=== PATIENT | female | born 1940 | race Caucasian/White ===

== ENCOUNTER 2016-08-03 12:30 | Emergency (ER) | payer MEDICARE, OTHER ==
[~2016-08-03] VITALS: Ht 157.5 cm; Wt 67.1 kg
[2016-08-03] MEDS ORDERED: NITROGLYCERIN SUBLINGUAL 0.4 MG BOTTLE OF 25. SL ONE (13:30)
[2016-08-03] MEDS ORDERED: LIDO:MAALOX 1:1 20 ML SINGLE DOSE PO ONE (13:30)
[2016-08-03] MEDS ORDERED: LIDO15SO2 MM (14:23)
[2016-08-03 14:29] VITALS: BP 138/79
--- NOTE | 2016-08-03 18:55 | ED.ADGEN ---
Past History Past Medical History: Diabetes, Hypertension, Hyperthyroid Past Surgical History: Other Alcohol Use: Occasionally Drug Use: None Adult General HPI HPI Patient is a 76-year-old woman, with history of hypertension, hypothyroidism, type 2 diabetes mellitus, esophageal stricture status post dilatation, who presents to the emergency department with a complaint of a foreign body sensation in her throat was last night. Patient states that she ate a salad, and candy, and believes that one of these items may be "septic my throat". She denies any difficulty with swallowing or breathing, is managing secretions and fluids without issue, she says a persistent foreign body sensation that is uncomfortable in her lower throat. She states she experienced something similar several years ago, at that time she believes that she had an esophageal dilatation performed. 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 She denies eating any fish bones or other specific items that she recalls lodging in her throat. Is unable to pinpoint exactly when the sensation began. Denies any chest pain or shortness of breath, any fevers or chills, any back pain or abdominal pain, any weakness, numbness, tingling, swelling of the tongue or mouth. Review of Systems Review of Systems Constitutional: Denies fever or chills [] Eyes: Denies change in visual acuity, redness, or eye pain [] HENT: Denies nasal congestion or sore throat [] foreign body sensation in the throat. Respiratory: Denies cough or shortness of breath [] Cardiovascular: No additional information not addressed in HPI [] GI: Denies abdominal pain, nausea, vomiting, bloody stools or diarrhea [] : Denies dysuria or hematuria [] Musculoskeletal: Denies back pain or joint pain [] Integument: Denies rash or skin lesions [] Neurologic: Denies headache, focal weakness or sensory changes [] Endocrine: Denies polyuria or polydipsia [] Current Medications Current Medications Current Medications Medications (Trade) Dose Ordered Sig/Davon Start Time Stop Time Status Last Admin Dose Admin Multi-Ingredient Mouthwash/Gargle (Gi Cocktail) 20 ml 1X ONCE 08/03/16 13:30 08/03/16 13:31 DC 08/03/16 13:13 20 ML Nitroglycerin (Nitrostat) 0.4 mg 1X ONCE 08/03/16 13:30 08/03/16 13:31 DC 08/03/16 13:13 0.4 MG Allergies Allergies Allergies Coded Allergies Type Severity Reaction Last Updated Verified No Known Drug Allergies 08/03/16 No Physical Exam Physical Exam Constitutional: Well developed, well nourished, no acute distress, non-toxic appearance. [] HENT: Normocephalic, atraumatic, bilateral external ears normal, oropharynx moist, no oral exudates, nose normal. Oropharynx is clear [] Eyes: PERRLA, EOMI, conjunctiva normal, no discharge. [] Neck: Normal range of motion, no tenderness, supple, no stridor. [] Cardiovascular:Heart rate regular rhythm, no murmur, S1, S2, no rubs or gallops. [] Lungs & Thorax: Bilateral breath sounds clear to auscultation , no wheezing, rhonchi, rales. No chest or crepitus or tenderness. [] Abdomen: Bowel sounds normal, soft, no tenderness, no masses, no pulsatile masses. [] Skin: Warm, dry, no erythema, no rash. [] Back: No tenderness, no CVA tenderness. [] Extremities: No tenderness, no cyanosis, no clubbing, ROM intact, no edema. [] Neurologic: Alert and oriented X 3, normal motor function, normal sensory function, no focal deficits noted. [] Psychologic: Affect normal, judgement normal, mood normal. [] Current Patient Data Vital Signs Vital Signs Date Time Temp Pulse Resp B/P (MAP) Pulse Ox O2 Delivery O2 Flow Rate FiO2 08/03/16 14:29 89 16 138/79 (98) 97 Room Air 08/03/16 12:40 98.3 EKG EKG Not indicated. [] Radiology/Procedures Radiology/Procedures Not indicated. [] Course & Med Decision Making Course & Med Decision Making Pertinent Labs and Imaging studies reviewed. (See chart for details) Patient appears comfortable, is tolerating secretions, and by her report, food and fluid without issue. Examination does not reveal any evidence of abnormalities in the throat or neck. Patient denies ingestion of anything that would be radio opaque, we did hold off on an x-ray in the emergency department. As patient stated, she is has symptoms previously consistent with this, and required esophageal dilatation. Based on her comfortable status, there is no indication for emergent intervention at this time. Patient was given a GI cocktail in the emergency department, and also nitroglycerin, which she states did make her feel better. On reevaluation states she is ready to be discharged home, she will follow-up with her primary care provider Dr. Ulloa tomorrow for additional evaluation, and for referral to ENT for additional workup as needed, and will return to the emergency department if any new, worsening or concerning symptoms develop. Patient discharged home with family in stable condition with plan as above with a prescription for viscous lidocaine to be used as needed. Final Impression Final Impression [] Problems: Dragon Disclaimer Dragon Disclaimer This electronic medical record was generated, in whole or in part, using a voice recognition dictation system. Departure: Impression: Primary Impression: Sensation of foreign body in esophagus Disposition: 01 HOME, SELF-CARE Condition: IMPROVED Scripts Lidocaine HCl (Lidocaine HCl Viscous) 15 Ml Solution 15 ML MM PRN QID Y for PAIN, #120 [facility] Prov: SUMANTH WHITTAKER DO 08/03/16 SUMANTH WHITTAKER DO Aug 03, 2016 18:55
== END 2016-08-03 14:29 | disposition home or self-care (01) ==
LOC: ER 12:30
DX: T18.128A Food in esophagus causing other injury, initial encounter (principal); E11.9 Type 2 diabetes mellitus without complications; I10 Essential (primary) hypertension; W22.8XXA Striking against or struck by other objects, initial encounter; Y93.89 Activity, other specified; Y99.8 Other external cause status; Y92.89 Other specified places as the place of occurrence of the external cause
CPT/HCPCS: 99283

== ENCOUNTER → 2016-10-03 | Outpatient (CLI) | payer MEDICARE, OTHER ==
[~2016-10-03] MED LIST: LIDO15SO2 MM
--- NOTE | 2016-10-03 17:25 | RAD ---
DATE: 10/03/2016 EXAM: MAMMO ANIL SCREENING BILATERAL HISTORY: Routine screening COMPARISON: 10/01/2015 This study was interpreted with the benefit of Computerized Aided Detection (CAD). The breast parenchyma shows scattered fibroglandular densities. Breast parenchyma level B. FINDINGS: 2-D and 3-D tomosynthesis imaging was performed in CC and MLO projections. The fibroglandular tissues are heterogeneous. No new or enlarging breast densities are seen. Benign type calcifications are present. No suspicious microcalcifications have developed. IMPRESSION: Stable mammograms without evidence of malignancy. BI-RADS CATEGORY: 2 BENIGN FINDING(S) RECOMMENDED FOLLOW-UP: 12M 12 MONTH FOLLOW-UP PQRS compliance statement: Patient information was entered into a reminder system with a target due date for the next mammogram. Mammography is a sensitive method for finding small breast cancers, but it does not detect them all and is not a substitute for careful clinical examination. A negative mammogram does not negate a clinically suspicious finding and should not result in delay in biopsying a clinically suspicious abnormality. "Our facility is accredited by the [employer] Mammography Program."
== END | disposition home or self-care (01) ==
LOC: MAMMO 09:41
PROVIDERS: ATTEND Internal Medicine
DX: Z12.31 Encounter for screening mammogram for malignant neoplasm of breast (principal)
CPT/HCPCS: 77063; G0202; 77067

== ENCOUNTER → 2017-02-02 | Outpatient (CLI) | payer MEDICARE, OTHER | END | disposition home or self-care (01) | LOC: LAB 09:04 | PROVIDERS: ATTEND Internal Medicine | DX: E11.9 Type 2 diabetes mellitus without complications (principal) | CPT/HCPCS: 36415; 82947 ==

== ENCOUNTER → 2017-10-28 | Outpatient (CLI) | payer MEDICARE, OTHER ==
--- NOTE | 2017-10-28 12:29 | RAD ---
DATE: 10/28/2017 EXAM: MAMMO ANIL SCREENING BILATERAL HISTORY: Routine screening COMPARISON: 10/03/2016 This study was interpreted with the benefit of Computerized Aided Detection (CAD). The breast parenchyma is heterogeneously dense, which could reduce sensitivity of mammography. Breast parenchyma level C. FINDINGS: 2-D and 3-D tomosynthesis imaging was performed in CC and MLO projections. The fibroglandular tissues are heterogeneously somewhat nodular pattern. No new or enlarging breast density is seen. There are numerous benign type calcifications in both breasts. No suspicious microcalcifications have developed. IMPRESSION: Stable mammograms without evidence of malignancy. BI-RADS CATEGORY: 2 BENIGN FINDING(S) RECOMMENDED FOLLOW-UP: 12M 12 MONTH FOLLOW-UP PQRS compliance statement: Patient information was entered into a reminder system with a target due date for the next mammogram. Mammography is a sensitive method for finding small breast cancers, but it does not detect them all and is not a substitute for careful clinical examination. A negative mammogram does not negate a clinically suspicious finding and should not result in delay in biopsying a clinically suspicious abnormality. "Our facility is accredited by the [employer] Mammography Program."
== END | disposition home or self-care (01) ==
LOC: MAMMO 10:31
PROVIDERS: ATTEND Internal Medicine
DX: Z12.31 Encounter for screening mammogram for malignant neoplasm of breast (principal); E78.2 Mixed hyperlipidemia; I10 Essential (primary) hypertension; E11.9 Type 2 diabetes mellitus without complications; E03.9 Hypothyroidism, unspecified
CPT/HCPCS: 77063; 77067

== ENCOUNTER → 2017-12-18 | Outpatient (CLI) | payer MEDICARE, OTHER ==
[2017-12-18 09:53] LABS: ALBUMIN 3.3 g/dL (3.4-5.0); ALBUMIN/GLOBULIN RATIO 0.8 (1.0-1.7); CALCIUM 8.4 mg/dL (8.5-10.1); GFR 53.9; POTASSIUM 4.4 mmol/L (3.5-5.1); TOTAL BILIRUBIN 0.4 mg/dL (0.2-1.0); TOTAL PROTEIN 7.4 g/dL (6.4-8.2)
[2017-12-18 14:29] LABS: THYROID STIM HORMONE (TSH) 0.203 uIU/mL (0.358-3.740)
[2017-12-18 23:13] LABS: HEMOGLOBIN A1C 6.4 % (4.8-5.6)
== END | disposition home or self-care (01) ==
LOC: LAB 08:30
PROVIDERS: ATTEND Internal Medicine
DX: E03.4 Atrophy of thyroid (acquired) (principal); I10 Essential (primary) hypertension; E78.2 Mixed hyperlipidemia; E11.9 Type 2 diabetes mellitus without complications
CPT/HCPCS: 36415; 80053; 80061; 83036; 84443

== ENCOUNTER → 2018-08-10 | Outpatient (CLI) | payer MEDICARE, OTHER ==
[2018-08-10 10:28] LABS: ALBUMIN 3.1 g/dL (3.4-5.0); ALBUMIN/GLOBULIN RATIO 0.7 (1.0-1.7); CALCIUM 9.2 mg/dL (8.5-10.1); CREATININE 0.8 mg/dL (0.6-1.0); GFR 69.6; POTASSIUM 4.6 mmol/L (3.5-5.1); TOTAL BILIRUBIN 0.5 mg/dL (0.2-1.0); TOTAL PROTEIN 7.5 g/dL (6.4-8.2)
[2018-08-10 22:46] LABS: THYROID STIM HORMONE (TSH) 0.126 uIU/mL (0.358-3.740)
[2018-08-11 13:07] LABS: HEMOGLOBIN A1C 6.5 % (4.8-5.6)
== END | disposition home or self-care (01) ==
LOC: LAB 08:46
PROVIDERS: ATTEND Internal Medicine
DX: E78.2 Mixed hyperlipidemia (principal); E03.4 Atrophy of thyroid (acquired); E11.9 Type 2 diabetes mellitus without complications; I10 Essential (primary) hypertension
CPT/HCPCS: 36415; 80053; 80061; 82043; 83036; 84443

== ENCOUNTER → 2018-09-14 | Outpatient (CLI) | payer MEDICARE, OTHER | END | disposition home or self-care (01) | LOC: LAB 09:12 | PROVIDERS: ATTEND Internal Medicine | DX: R26.89 Other abnormalities of gait and mobility (principal); E03.9 Hypothyroidism, unspecified | CPT/HCPCS: 82607; 84443 ==

== ENCOUNTER → 2018-09-15 | Outpatient (CLI) | payer MEDICARE, OTHER ==
--- NOTE | 2018-09-15 13:56 | RAD ---
PQRS Compliance statement: One or more of the following individualized dose reduction techniques were utilized for this examination: 1. Automated exposure control. 2. Adjustment of the mA and/or kV according to patient size. 3. Use of iterative reconstruction technique. Indication:Balance problems. TECHNIQUE: CT head without IV contrast COMPARISON: None FINDINGS: No pathologic extra-axial or intra-axial fluid collection. Mild atrophy. The ventricles and basal cisterns are within normal limits. No acute intracranial bleed. Mild periventricular low-attenuation of the white matter noted. No focal daniel-white differentiation. No suspicious calvarial lesion. Visualized paranasal sinuses and mastoid air cells are clear. Atherosclerotic plaque in the bilateral cavernous segments of the ICA. IMPRESSION: No acute intracranial process on this noncontrast CT. If concern for acute ischemic stroke is high, please consider MRI brain. Electronically signed by: Aaron Shaw DO (09/15/2018 1:53 PM) [facility]
== END | disposition home or self-care (01) ==
LOC: CT 12:52
PROVIDERS: ATTEND Internal Medicine
DX: I65.23 Occlusion and stenosis of bilateral carotid arteries (principal); G31.9 Degenerative disease of nervous system, unspecified
CPT/HCPCS: 70450

== ENCOUNTER → 2018-10-13 | Outpatient (CLI) | payer MEDICARE, OTHER | END | disposition home or self-care (01) | LOC: LAB 12:41 | PROVIDERS: ATTEND Internal Medicine | DX: E03.4 Atrophy of thyroid (acquired) (principal) | CPT/HCPCS: 84443 ==

== ENCOUNTER 2018-12-15 20:15 | Emergency (ER) | payer MEDICARE, OTHER ==
[2018-12-15 20:19] VITALS: BP 128/69
[2018-12-15] MEDS ORDERED: IV NORMAL SALINE 1,000ML 1,000 ML IV ONE (20:30)
[2018-12-15 21:06] LABS: BASO # 0.1 x10^3/uL (0.0-0.2); BASO % 1 % (0-3); EOS # 0.2 x10^3/uL (0.0-0.7); EOS % 4 % (0-3); HEMOGLOBIN 11.9 g/dL (12.0-15.5); LYMPH # 0.7 x10^3/uL (1.0-4.8); LYMPH % 12 % (24-48); MEAN CORPUSCULAR HEMOGLOBIN 30 pg (25-35); MEAN CORPUSCULAR HGB CONC 33 g/dL (31-37); MEAN CORPUSCULAR VOLUME 92 fL (79-100); MONO # 0.6 x10^3/uL (0.0-1.1); MONO % 10 % (0-9); NEUT # 4.4 x10^3uL (1.8-7.7); NEUT % 73 % (31-73); PLATELET COUNT 297 x10^3/uL (140-400); RED BLOOD COUNT 3.93 x10^6/uL (3.50-5.40); RED CELL DISTRIBUTION WIDTH 14.1 % (11.5-14.5)
[2018-12-15 21:13] LABS: ALBUMIN 2.8 g/dL (3.4-5.0); ALBUMIN/GLOBULIN RATIO 0.8 (1.0-1.7); CALCIUM 7.3 mg/dL (8.5-10.1); CREATININE 1.3 mg/dL (0.6-1.0); GFR 39.7; TOTAL BILIRUBIN 0.4 mg/dL (0.2-1.0); TOTAL PROTEIN 6.4 g/dL (6.4-8.2)
--- NOTE | 2018-12-15 21:13 | PHYS DOC ---
Past History Past Medical History: Diabetes, Hypertension, Hyperthyroid Past Surgical History: Other Alcohol Use: Occasionally Drug Use: None Adult General Chief Complaint Chief Complaint: HEMORRHOIDS HPI HPI 78-year-old female presents with rectal bleeding. The patient has had 4 episodes of stool with bright red blood today. She states that it was "pouring into the toilet". She has never had bleeding like this. It is painless. She is concerned because she recently had stents placed. She is on a life vest and fluid restriction at 1500 mL a day. She was concerned that with this does not stop bleeding. The patient is on aspirin and Plavix. She denies fever or chills. She has no other complaints. Review of Systems Review of Systems Constitutional: Denies fever or chills [] Eyes: Denies change in visual acuity, redness, or eye pain [] HENT: Denies nasal congestion or sore throat [] Respiratory: Denies cough or shortness of breath [] Cardiovascular: No additional information not addressed in HPI [] GI: Denies abdominal pain, nausea, vomiting, bloody stools or diarrhea [] : Rectal bleeding[] Musculoskeletal: Denies back pain or joint pain [] Integument: Denies rash or skin lesions [] Neurologic: Denies headache, focal weakness or sensory changes [] Endocrine: Denies polyuria or polydipsia [] All other systems were reviewed and found to be within normal limits, except as documented in this note. Current Medications Current Medications Current Medications Medications (Trade) Dose Ordered Sig/Davon Start Time Stop Time Status Last Admin Dose Admin Sodium Chloride 1,000 ml @ 1,000 mls/hr 1X ONCE 12/15/18 20:30 12/15/18 21:29 Allergies Allergies Allergies Coded Allergies Type Severity Reaction Last Updated Verified No Known Drug Allergies 08/03/16 No Physical Exam Physical Exam Constitutional: Well developed, well nourished, no acute distress, non-toxic appearance. [] HENT: Normocephalic, atraumatic, bilateral external ears normal, oropharynx moist, no oral exudates, nose normal. [] Eyes: PERRLA, EOMI, conjunctiva normal, no discharge. [] Neck: Normal range of motion, no tenderness, supple, no stridor. [] Cardiovascular:Heart rate regular rhythm, no murmur [] Lungs & Thorax: Bilateral breath sounds clear to auscultation [] Abdomen: Bowel sounds normal, soft, no tenderness, no masses, no pulsatile masses. [] Skin: Warm, dry, no erythema, no rash. [] Back: No tenderness, no CVA tenderness. [] Extremities: No tenderness, no cyanosis, no clubbing, ROM intact, no edema. [] Neurologic: Alert and oriented X 3, normal motor function, normal sensory function, no focal deficits noted. [] Psychologic: Affect normal, judgement normal, mood normal. Rectal: large skin tag, no obvious bleeding, minimal pain with DILCIA, small amount of blood with exam, no flowing bleeding.[] Current Patient Data Lab Results Laboratory Tests Test 12/15/18 20:45 White Blood Count 6.0 x10^3/uL (4.0-11.0) Red Blood Count 3.93 x10^6/uL (3.50-5.40) Hemoglobin 11.9 g/dL (12.0-15.5) L Hematocrit 36.0 % (36.0-47.0) Mean Corpuscular Volume 92 fL (79-100) Mean Corpuscular Hemoglobin 30 pg (25-35) Mean Corpuscular Hemoglobin Concent 33 g/dL (31-37) Red Cell Distribution Width 14.1 % (11.5-14.5) Platelet Count 297 x10^3/uL (140-400) Neutrophils (%) (Auto) 73 % (31-73) Lymphocytes (%) (Auto) 12 % (24-48) L Monocytes (%) (Auto) 10 % (0-9) H Eosinophils (%) (Auto) 4 % (0-3) H Basophils (%) (Auto) 1 % (0-3) Neutrophils # (Auto) 4.4 x10^3uL (1.8-7.7) Lymphocytes # (Auto) 0.7 x10^3/uL (1.0-4.8) L Monocytes # (Auto) 0.6 x10^3/uL (0.0-1.1) Eosinophils # (Auto) 0.2 x10^3/uL (0.0-0.7) Basophils # (Auto) 0.1 x10^3/uL (0.0-0.2) EKG EKG [] Radiology/Procedures Radiology/Procedures [] Course & Med Decision Making Course & Med Decision Making Pertinent Labs and Imaging studies reviewed. (See chart for details) The patient has a long history of hemorrhoids. This is likely a hemorrhoid or a fissure. The Plavix and aspirin making it harder for her to stop bleeding. The patient's hemoglobin is 11.9. I have no previous for comparison. Her labs are also significant for a sodium of 127. Review of her labs she typically has low sodium level. I believe this should resolve on its own. No further treatment other than symptomatic hemorrhoid treatment is necessary. She is stable for discharge at this time. If she develops any new symptoms or if her symptoms worsen, she will return to the emergency room. [] Dragon Disclaimer Dragon Disclaimer This electronic medical record was generated, in whole or in part, using a voice recognition dictation system. Departure Departure: Impression: Primary Impression: Rectal bleeding Disposition: HOME, SELF-CARE Condition: STABLE Referrals: CARLOS MARAVILLA MD (PCP) Patient Instructions: Hemorrhoids, [id number] Additional Instructions: The patient can use [id number] hemorrhoid cream. She may use whatever brand she prefers upper whatever is available at the facility where she lives. SILVIA HUMPHRIES DO Dec 15, 2018 21:13
== END 2018-12-15 21:41 | disposition home or self-care (01) ==
LOC: ER 20:15
DX: K62.5 Hemorrhage of anus and rectum (principal); E11.9 Type 2 diabetes mellitus without complications; I10 Essential (primary) hypertension; E03.9 Hypothyroidism, unspecified
CPT/HCPCS: 36415; 80053; 85025; 85610; 85730; 99284

== ENCOUNTER → 2019-01-25 | Outpatient (CLI) | payer MEDICARE, OTHER ==
--- NOTE | 2019-01-25 11:30 | CARD ---
MR#: [id number] Date of Study: 01/25/2019 Ordering Physician: BARBARA GUZMAN, Referring Physician: BARBARA GUZMAN Tech: Rebecca Leahy RDCS APPROVED REPORT EXAM: Two-dimensional and M-mode echocardiogram with Doppler and color Doppler. INDICATION Congestive Heart Failure Patient wearing a life vest 2D DIMENSIONS RVDd3.2 (2.9-3.5cm)Left Atrium(2D)3.4 (1.6-4.0cm) IVSd0.9 (0.7-1.1cm)Aortic Root(2D)3.0 (2.0-3.7cm) LVDd5.5 (3.9-5.9cm)LVOT Diameter2.1 (1.8-2.4cm) PWd0.9 (0.7-1.1cm)LVDs5.1 (2.5-4.0cm) FS (%) 7.2 %SV23.4 ml LVEF(%)15.8 (>50%) Aortic Valve AoV Peak Gerard.79.4cm/sAoV VTI12.4cm AO Peak GR.2.5mmHgLVOT Peak Gerard.65.1cm/s LVOT VTI 11.41cmAO Mean GR.2mmHg NEY (VMAX)2.75wv3UVL (VTI)3.27cm2 Mitral Valve MV E Kvjqnije81.2cm/sMV DECEL RSUW343ig MV A Uluexias75.7cm/sE/A Ratio0.7 Tricuspid Valve TR P. Trcxdnoz665hg/sRAP [id number] TR Peak Gr.59gsSvLAQE01qfCx LEFT VENTRICLE The Left Ventricle is mildly dilated. There is normal left ventricular wall thickness. Left ventricle systolic function is severely impaired. The Ejection Fraction is 10-15%. There is severe global hypo kinesis of the left ventricle. Transmitral Doppler flow pattern is Grade I-abnormal relaxation patter n. RIGHT VENTRICLE The right ventricle is mildly dilated. Systolic function is mildly to moderately reduced. ATRIA The left atrium size is normal. The right atrium is moderately dilated. The interatrial septum is int act with no evidence for an atrial septal defect or patent foramen ovale as noted on 2-D or Doppler i maging. AORTIC VALVE The aortic valve is calcified but opens well. Doppler and Color Flow revealed trace aortic regurgitat ion. There is no significant aortic valvular stenosis. MITRAL VALVE The mitral valve is calcified but opens well. There is no evidence of mitral valve prolapse. There is no mitral valve stenosis. Doppler and Color-flow revealed trace to mild mitral regurgitation. TRICUSPID VALVE The tricuspid valve is normal in structure and function. Doppler and Color Flow revealed mild to mode rate tricuspid regurgitation. There is moderate pulmonary hypertension. The PA pressure was estimated at 55 mmHg. There is no tricuspid valve stenosis. PULMONIC VALVE The pulmonary valve is normal in structure and function. Doppler and Color Flow revealed mild pulmoni c valvular regurgitation. There is no pulmonic valvular stenosis. GREAT VESSELS The aortic root is normal in size. The ascending aorta is normal in size. The IVC is dilated and bar apses <50% with inspiration. PERICARDIAL EFFUSION There is no evidence of significant pericardial effusion. Critical Notification Critical Value: No <Conclusion> Left ventricle systolic function is severely impaired. The Ejection Fraction is 10-15%. Transmitral Doppler flow pattern is Grade I-abnormal relaxation pattern. Trace to mild mitral regurgitation. Mild to moderate tricuspid regurgitation. There is moderate pulmonary hypertension. The PA pressure was estimated at 55 mmHg. There is no evidence of significant pericardial effusion. Signed by : Barbara Guzman, Electronically Approved : 01/25/2019 11:30:12
== END | disposition home or self-care (01) ==
LOC: ECHO 09:09
PROVIDERS: ATTEND Internal Medicine Cardiovascular Disease
DX: I08.8 Other rheumatic multiple valve diseases (principal); I50.22 Chronic systolic (congestive) heart failure
CPT/HCPCS: 93306

== ENCOUNTER 2019-03-20 14:46 | Emergency (ER) | payer MEDICARE ==
[~2019-03-20] VITALS: Ht 157.5 cm; Wt 64.0 kg
[~2019-03-20 14:46] MED LIST changes: -LIDO15SO2 MM; +LIDO20SO10 MM
[2019-03-20 15:35] LABS: BASO # 0.1 x10^3/uL (0.0-0.2); BASO % 1 % (0-3); EOS # 0.4 x10^3/uL (0.0-0.7); EOS % 5 % (0-3); HEMATOCRIT 33.2 % (36.0-47.0); LYMPH # 0.8 x10^3/uL (1.0-4.8); LYMPH % 11 % (24-48); MEAN CORPUSCULAR HEMOGLOBIN 31 pg (25-35); MEAN CORPUSCULAR HGB CONC 33 g/dL (31-37); MEAN CORPUSCULAR VOLUME 95 fL (79-100); MONO # 0.8 x10^3/uL (0.0-1.1); MONO % 11 % (0-9); NEUT # 5.4 x10^3uL (1.8-7.7); NEUT % 72 % (31-73); PLATELET COUNT 322 x10^3/uL (140-400); RED CELL DISTRIBUTION WIDTH 19.4 % (11.5-14.5); WHITE BLOOD COUNT 7.5 x10^3/uL (4.0-11.0)
[2019-03-20 15:36] LABS: BILIRUBIN,URINE NEG (NEG); CLARITY,URINE HAZY; COLOR,URINE YELLOW; GLUCOSE,URINE NEG (NEG)
[2019-03-20 15:37] LABS: BACTERIA,URINE MOD /HPF (0-FEW); NITRITE,URINE NEG (NEG); RBC,URINE OCC /HPF (0-2); SQUAMOUS EPITHELIAL CELL,UR OCC /LPF; UROBILINOGEN,URINE 0.2 mg/dL (0.2 mg/dL)
--- NOTE | 2019-03-20 15:58 | EKG ---
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
--- NOTE | 2019-03-20 16:13 | RAD ---
Exam: Chest one view INDICATION: Fluid overload TECHNIQUE: Frontal view of the chest Comparisons: None FINDINGS: Pacer with leads terminating the right atrium and ventricle. The cardiomediastinal silhouette and pulmonary vessels are within normal limits. Small left-sided pleural effusion. Lungs are otherwise clear. IMPRESSION: Small left pleural effusion. Electronically signed by: Mirela Cardenas MD (03/20/2019 4:10 PM) [facility]
--- NOTE | 2019-03-20 16:26 | PHYS DOC ---
Past History Past Medical History: Anxiety, CHF, Diabetes, Heart Disease, Hypertension, Hypothyroid Additional Past Medical Histor: hyperlipidemia Past Surgical History: Other Additional Past Surgical Histo: 3 stents Alcohol Use: Occasionally Drug Use: None Adult General Chief Complaint Chief Complaint: URINARY RETENTION HPI HPI Patient is a 78-year-old female who presents with report of difficulty with urinating over the last couple of days. Patient was able to urinate prior to coming in today. Patient is also been having a lot of problems with weight gain recently and has had her diuretic dosage increased to try and get some of the fluid off of her. Patient denies any chest pain. She does indicate that she feels a little short winded at times. Patient is also been noted to have increase in swelling in her thighs as she wears compressive stockings. She is also been reported to have swelling in her abdominal wall. Patient does indicate that she has some generalized weakness. She is not aware of any fever. She denies any nausea, vomiting or diarrhea.[] Review of Systems Review of Systems Constitutional: Denies fever or chills [] Respiratory: Reports to mild shortness of breath [] Cardiovascular: No additional information not addressed in HPI [] GI: Denies abdominal pain, nausea, vomiting or diarrhea [] Neurologic: Denies headache, focal weakness or sensory changes [] All other systems were reviewed and found to be within normal limits, except as documented in this note. Allergies Allergies Allergies Coded Allergies Type Severity Reaction Last Updated Verified No Known Drug Allergies 08/03/16 No Physical Exam Physical Exam Constitutional: Well developed, well nourished, no acute distress, non-toxic appearance. [] HENT: Normocephalic, atraumatic, bilateral external ears normal, oropharynx moist, no oral exudates, nose normal. [] Eyes: PERRLA, EOMI, conjunctiva normal, no discharge. [] Neck: Normal range of motion, no tenderness, supple, no stridor. [] Cardiovascular: Regular rate and rhythm[] Lungs & Thorax: Bilateral breath sounds clear to auscultation [] Abdomen: Bowel sounds normal, soft, no tenderness. [] Skin: Warm, dry, no erythema, no rash. [] Extremities: No tenderness, no cyanosis, no clubbing, ROM intact, with 3+ pitting edema noted in the thighs. [] Neurologic: Awake and alert, no focal deficits noted. [] Current Patient Data Vital Signs Vital Signs Date Time Temp Pulse Resp B/P (MAP) Pulse Ox O2 Delivery O2 Flow Rate FiO2 03/20/19 15:58 101 18 83/51 (62) 98 Room Air 03/20/19 15:03 97.8 Lab Results Laboratory Tests Test 03/20/19 15:08 03/20/19 15:19 Urine Collection Type Unknown Urine Color Yellow Urine Clarity Hazy Urine pH 5.5 Urine Specific [place] 1.010 Urine Protein Neg (NEG-TRACE) Urine Glucose (UA) Neg mg/dL (NEG) Urine Ketones (Stick) Neg mg/dL (NEG) Urine Blood Neg (NEG) Urine Nitrite Neg (NEG) Urine Bilirubin Neg (NEG) Urine Urobilinogen Dipstick 0.2 mg/dL (0.2 mg/dL) Urine Leukocyte Esterase Small (NEG) Urine RBC Occ /HPF (0-2) Urine WBC 11-20 /HPF (0-4) Urine Squamous Epithelial Cells Occ /LPF Urine Renal Epithelial Cells Occ /LPF Urine Bacteria Mod /HPF (0-FEW) Urine Mucus Slight /LPF White Blood Count 7.5 x10^3/uL (4.0-11.0) Red Blood Count 3.50 x10^6/uL (3.50-5.40) Hemoglobin 11.0 g/dL (12.0-15.5) L Hematocrit 33.2 % (36.0-47.0) L Mean Corpuscular Volume 95 fL (79-100) Mean Corpuscular Hemoglobin 31 pg (25-35) Mean Corpuscular Hemoglobin Concent 33 g/dL (31-37) Red Cell Distribution Width 19.4 % (11.5-14.5) H Platelet Count 322 x10^3/uL (140-400) Neutrophils (%) (Auto) 72 % (31-73) Lymphocytes (%) (Auto) 11 % (24-48) L Monocytes (%) (Auto) 11 % (0-9) H Eosinophils (%) (Auto) 5 % (0-3) H Basophils (%) (Auto) 1 % (0-3) Neutrophils # (Auto) 5.4 x10^3uL (1.8-7.7) Lymphocytes # (Auto) 0.8 x10^3/uL (1.0-4.8) L Monocytes # (Auto) 0.8 x10^3/uL (0.0-1.1) Eosinophils # (Auto) 0.4 x10^3/uL (0.0-0.7) Basophils # (Auto) 0.1 x10^3/uL (0.0-0.2) Troponin I Quantitative 0.074 ng/mL (0-0.055) H EKG EKG [] Radiology/Procedures Radiology/Procedures [] Impressions: PROCEDURE: PORTABLE CHEST 1V Exam: Chest one view INDICATION: Fluid overload TECHNIQUE: Frontal view of the chest Comparisons: None FINDINGS: Pacer with leads terminating the right atrium and ventricle. The cardiomediastinal silhouette and pulmonary vessels are within normal limits. Small left-sided pleural effusion. Lungs are otherwise clear. IMPRESSION: Small left pleural effusion. Electronically signed by: Mirela Cardenas MD (03/20/2019 4:10 PM) [facility] Course & Med Decision Making Course & Med Decision Making Pertinent Labs and Imaging studies reviewed. (See chart for details) [] Dragon Disclaimer Dragon Disclaimer This electronic medical record was generated, in whole or in part, using a voice recognition dictation system. Departure Departure: Impression: Primary Impression: Acute kidney failure Additional Impressions: Hypocalcemia Severe dehydration Disposition: [facility] Admitting Physician: Mak Noble Condition: IMPROVED Referrals: CARLOS MARAVILLA MD (PCP) Problem Qualifiers Primary Impression: Acute kidney failure Acute renal failure type: unspecified Qualified Codes: N17.9 - Acute kidney failure, unspecified SHILO JALLOH Jr. DO Mar 20, 2019 16:26
[2019-03-20 17:21] LABS: ALBUMIN 2.1 g/dL (3.4-5.0); ALBUMIN/GLOBULIN RATIO 0.5 (1.0-1.7); TOTAL PROTEIN 6.2 g/dL (6.4-8.2)
[2019-03-20 17:22] LABS: CALCIUM 4.7 mg/dL (8.5-10.1); GLUCOSE 178 mg/dL (70-99)
[2019-03-20 17:23] LABS: ALK PHOS 128 U/L (46-116); ALT (SGPT) 14 U/L (14-59); AST (SGOT) 22 U/L (15-37); BLOOD UREA NITROGEN 86 mg/dL (7-20); POTASSIUM 4.9 mmol/L (3.5-5.1); SODIUM 139 mmol/L (136-145); TOTAL BILIRUBIN 0.5 mg/dL (0.2-1.0)
[2019-03-20 17:24] LABS: ANION GAP 16 (6-14); CARBON DIOXIDE 20 mmol/L (21-32); CHLORIDE 103 mmol/L (98-107)
[2019-03-20] MEDS ORDERED: IV NORMAL SALINE 1,000ML 1,000 ML IV ONE (17:45)
[2019-03-20] MEDS ORDERED: CALCIUM CHLORIDE 1,000 MG/10 ML DISP.SYRIN IV ONE ×2 (18:00→18:19)
[2019-03-20] MEDS ORDERED: CALCIUM CHLORIDE 1,000 MG in IV NORMAL SALINE 50ML 50 ML IV ONE (18:00)
[2019-03-20 19:21] VITALS: BP 114/68
== END 2019-03-20 20:00 | disposition short-term general hospital (02) ==
LOC: ER 14:46
DX: N17.9 Acute kidney failure, unspecified (principal); E83.51 Hypocalcemia; E86.0 Dehydration; F41.9 Anxiety disorder, unspecified; I11.0 Hypertensive heart disease with heart failure; I50.9 Heart failure, unspecified; E11.9 Type 2 diabetes mellitus without complications; E03.9 Hypothyroidism, unspecified; E78.5 Hyperlipidemia, unspecified
CPT/HCPCS: 36415; 71045; 80053; 81001; 83880; 84484; 85025; 87086; 87186; 93005; 96365; 99285-25; J7030

== ENCOUNTER 2019-04-02 09:08 | Emergency (ER) | payer MEDICARE ==
[~2019-04-02] VITALS: Ht 157.5 cm; Wt 67.4 kg
[2019-04-02] MEDS ORDERED: IV NORMAL SALINE 1,000ML 1,000 ML IV ONE (09:30)
[2019-04-02] MEDS ORDERED: PANTOPRAZOLE IV 40 MG VIAL. IVP ONE (09:45)
--- NOTE | 2019-04-02 09:55 | PHYS DOC ---
Past History Past Medical History: Anxiety, CHF, Diabetes, Heart Disease, Hypertension, Hypothyroid Additional Past Medical Histor: hyperlipidemia Past Surgical History: Other Additional Past Surgical Histo: 3 stents Alcohol Use: Occasionally Drug Use: None Adult General Chief Complaint Chief Complaint: RECTAL BLEED HPI HPI 78-year-old female presents from her care facility for rectal bleeding. The patient tells me that she's had a rectal bleed for a day or 2. She was taken to her primary physician yesterday for labs. They did not get the results back until after 10 PM. Labs provided show a hemoglobin of 4.9 and hematocrit of 14.5, platelets 244. This hemoglobin is significant change from 10.4 on 03/28/2019. They brought the patient to the emergency room. The patient tells me that she is feeling a bit weak and short of breath. She recently had a pacemaker/defibrillator installed. The patient is on a baby aspirin and Plavix daily. She is not on any anticoagulant medications. He does have a history of GERD. She does not believe she is ever had a GI bleed. Her paperwork from the facility does not list GI bleed. She denies fever or chills. Review of Systems Review of Systems Constitutional: Denies fever or chills [] Eyes: Denies change in visual acuity, redness, or eye pain [] HENT: Denies nasal congestion or sore throat [] Respiratory: shortness of breath [] Cardiovascular: No additional information not addressed in HPI [] GI: GI bleed[] : Denies dysuria or hematuria [] Musculoskeletal: Denies back pain or joint pain [] Integument: Denies rash or skin lesions [] Neurologic: Denies headache, focal weakness or sensory changes [] Endocrine: Denies polyuria or polydipsia [] All other systems were reviewed and found to be within normal limits, except as documented in this note. Current Medications Current Medications Current Medications Medications (Trade) Dose Ordered Sig/Davon Start Time Stop Time Status Last Admin Dose Admin Pantoprazole Sodium (Protonix Vial) 80 mg 1X ONCE 04/02/19 09:45 04/02/19 09:46 DC Sodium Chloride 1,000 ml @ 1,000 mls/hr 1X ONCE 04/02/19 09:30 04/02/19 10:29 Allergies Allergies Allergies Coded Allergies Type Severity Reaction Last Updated Verified No Known Drug Allergies 08/03/16 No Physical Exam Physical Exam Constitutional: Well developed, well nourished, mild acute distress, pale.[] HENT: Normocephalic, atraumatic, bilateral external ears normal, oropharynx dry, no oral exudates, nose normal. [] Eyes: PERRLA, EOMI, conjunctiva normal, no discharge. [] Neck: Normal range of motion, no tenderness, supple, no stridor. [] Cardiovascular: Heart rate 90 regular rhythm, no murmur [] Lungs & Thorax: Bilateral breath sounds clear to auscultation [] Abdomen: Bowel sounds normal, soft, no tenderness, no masses, no pulsatile masses. [] Skin: Warm, dry, pale[] Back: No tenderness, no CVA tenderness. [] Extremities: No tenderness, no cyanosis, no clubbing, ROM intact, no edema. [] Neurologic: Alert and oriented X 3, normal motor function, normal sensory function, no focal deficits noted. [] Psychologic: Affect normal, judgement normal, mood normal. [] EKG EKG [] Radiology/Procedures Radiology/Procedures [] Course & Med Decision Making Course & Med Decision Making Pertinent Labs and Imaging studies reviewed. (See chart for details) The patient does appear to have an active GI bleed. I ordered 1 L normal saline, 80 mg Protonix, and 2 units of packed red blood cells. Her labs here are pending. I made these decisions based on her bleeding as well as her labs from the office yesterday. We will give 150mL/hr of fluids for now and get the blood ready. I will not transfuse until our labs confirm her Hg. The patient's hemoglobin is still 4.9 with hematocrit of 15. We will transfuse 2 [address] I spoke with Dr. Day, the hospitalist at [facility] and he has accepted the patient for transfer and admission. [] Dragon Disclaimer Dragon Disclaimer This electronic medical record was generated, in whole or in part, using a voice recognition dictation system. Departure Departure: Impression: Primary Impression: GI bleed Additional Impression: Anemia due to GI blood loss Disposition: 02 XFER SHT-TRM HOSP Condition: GUARDED Referrals: CARLOS MARAVILLA MD (PCP) Problem Qualifiers Primary Impression: GI bleed GI bleed type/associated pathology: anorectal hemorrhage Qualified Codes: K62.5 - Hemorrhage of anus and rectum SILVIA HUMPHRIES DO Apr 02, 2019 09:55
[2019-04-02 09:56] LABS: FECAL OB PT POSITIVE (NEG)
[2019-04-02 10:02] LABS: BILIRUBIN,URINE NEG (NEG); CLARITY,URINE CLOUDY; COLOR,URINE YELLOW; GLUCOSE,URINE NEG (NEG); NITRITE,URINE NEG (NEG); UROBILINOGEN,URINE 0.2 mg/dL (0.2 mg/dL)
[2019-04-02 10:03] LABS: BACTERIA,URINE MANY /HPF (0-FEW); SQUAMOUS EPITHELIAL CELL,UR FEW /LPF; WBC,URINE >40 /HPF (0-4)
[2019-04-02 10:17] LABS: BASO # 0.1 x10^3/uL (0.0-0.2); BASO % 2 % (0-3); EOS # 0.2 x10^3/uL (0.0-0.7); EOS % 3 % (0-3); LYMPH # 0.6 x10^3/uL (1.0-4.8); LYMPH % 10 % (24-48); MEAN CORPUSCULAR HEMOGLOBIN 32 pg (25-35); MEAN CORPUSCULAR HGB CONC 33 g/dL (31-37); MEAN CORPUSCULAR VOLUME 98 fL (79-100); MONO # 0.6 x10^3/uL (0.0-1.1); MONO % 10 % (0-9); NEUT # 4.9 x10^3uL (1.8-7.7); NEUT % 76 % (31-73); PLATELET COUNT 279 x10^3/uL (140-400); RED BLOOD COUNT 1.54 x10^6/uL (3.50-5.40); RED CELL DISTRIBUTION WIDTH 17.5 % (11.5-14.5); WHITE BLOOD COUNT 6.4 x10^3/uL (4.0-11.0)
[2019-04-02 10:20] LABS: HEMOGLOBIN 4.9 g/dL (12.0-15.5)
[2019-04-02 10:22] LABS: GFR 53.8; POTASSIUM 4.1 mmol/L (3.5-5.1)
[2019-04-02 10:28] LABS: ALBUMIN 1.7 g/dL (3.4-5.0); ALBUMIN/GLOBULIN RATIO 0.5 (1.0-1.7); TOTAL BILIRUBIN 0.2 mg/dL (0.2-1.0); TOTAL PROTEIN 4.9 g/dL (6.4-8.2)
[2019-04-02 10:57] VITALS: BP 95/52
== END 2019-04-02 11:13 | disposition short-term general hospital (02) ==
LOC: ER 09:08
DX: K92.2 Gastrointestinal hemorrhage, unspecified (principal); D50.0 Iron deficiency anemia secondary to blood loss (chronic); I11.0 Hypertensive heart disease with heart failure; I50.9 Heart failure, unspecified; E11.9 Type 2 diabetes mellitus without complications; E03.9 Hypothyroidism, unspecified; E78.5 Hyperlipidemia, unspecified
CPT/HCPCS: 36415; 80053; 81001; 82274; 85025; 85610; 85730; 86850; 86900; 86901; 86920; 87086; 87186; 96374; 99285; C9113; P9612; J7030

== ENCOUNTER 2019-09-03 09:02 | Inpatient (IN) | payer MEDICARE ==
[~2019-09-03] VITALS: Ht 157.5 cm; Wt 63.6 kg
[2019-09-03] MEDS ORDERED: IV NORMAL SALINE 1,000ML 1,000 ML IV SCH (09:10)
--- NOTE | 2019-09-03 09:17 | PHYS DOC ---
Past History Past Medical History: Anxiety, CHF, Diabetes, High Cholesterol, Heart Disease, Hypertension, Hypothyroid, Renal Failure Additional Past Medical Histor: hyperlipidemia Past Surgical History: Pacemaker, Other Additional Past Surgical Histo: 3 stents Alcohol Use: Occasionally Drug Use: None General Adult EDM: Chief Complaint: ABDOMINAL PAIN HPI: HPI: Patient is a 79 year old female who presents via EMS for evaluation of left lower quadrant abdominal pain that started in the past 2 days. Patient has acute on chronic vaginal bleeding as well. There is reported nausea but no vomiting or diarrhea. Patient is on a blood thinner (plavix). Furthermore patient is currently on palliative care. Patient lives at [facility] near [place]. Patient is a chronic indwelling Montiel catheter. Paperwork shows the patient is DNR Review of Systems: Review of Systems: Constitutional: Denies fever or chills Eyes: Denies change in visual acuity HENT: Denies nasal congestion or sore throat Respiratory: Denies cough or shortness of breath Cardiovascular: Denies chest pain or edema GI: has left lower abdominal pain with nausea, no vomiting,some bloody stools no diarrhea : montiel catheter Musculoskeletal: Denies back pain or joint pain Integument: Denies rash Neurologic: Denies headache, focal weakness or sensory changes Endocrine: Denies polyuria or polydipsia Lymphatic: Denies swollen glands Psychiatric: Denies depression or anxiety Heart Score: Risk Factors: Risk Factors: DM, Current or recent (<one month) smoker, HTN, HLP, family history of CAD, obesity. Risk Scores: Score 0 - 3: 2.5% MACE over next 6 weeks - Discharge Home Score 4 - 6: 20.3% MACE over next 6 weeks - Admit for Clinical Observation Score 7 - 10: 72.7% MACE over next 6 weeks - Early Invasive Strategies Allergies: Allergies: Allergies Coded Allergies Type Severity Reaction Last Updated Verified No Known Drug Allergies 08/03/16 No Physical Exam: PE: Constitutional: Well developed, well nourished, mild acute distress, non-toxic appearance. [] HENT: Normocephalic, atraumatic, bilateral external ears normal, oropharynx moist, no oral exudates, nose normal. [] Eyes: PERRL, EOMI, conjunctiva normal, no discharge. [] Neck: Normal range of motion, no tenderness, supple, no stridor. [] Cardiovascular:Heart rate regular rhythm, no murmur [] Lungs & Thorax: Bilateral breath sounds clear to auscultation [] Abdomen: Bowel sounds diminished, somewhat distended abd, left lower abd tenderness, no pulsatile masses. [] Skin: Warm, dry, no erythema, no rash, pale. [] Back: No tenderness, no CVA tenderness. [] Extremities: No tenderness, no cyanosis, no clubbing, ROM intact, some edema. [] Neurologic: Alert and oriented, normal motor function, normal sensory function, no focal deficits noted. [] Psychologic: Affect normal, judgement normal, mood normal. Rectal: Large hemorrhoid present, minimal tender, stool present that is normal brown color. Partial-thickness sacral decubitus ulcer present [] EKG: EKG: Normal sinus rhythm, rate 88, intraventricular conduction delay, PVC present, left axis deviation, low voltage, cannot exclude anterior septal old infarct, not STEMI [] Radiology/Procedures: Radiology/Procedures: [place] [address] IMAGING REPORT Signed PATIENT: SANDRA GUILLERMO ACCOUNT: [id number] : 1940 LOCATION: ER AGE: 79 SEX: F EXAM STATUS: REG ER ORD. PHYSICIAN: DANIAL KEN DO REASON: LLQ abd pain, hx renal failure PROCEDURE: CT ABDOMEN PELVIS WO CONTRAST Abdominal and Pelvis CT, Without Contrast: History: Reason: LLQ abd pain, hx renal failure / Spl. Instructions: / History: Comparison: None. Procedure: Axial images are obtained of the abdomen and pelvis, without IV or oral contrast. Oral Contrast: No Findings: Evaluation of solid organs is limited without contrast. There is moderate to large pleural effusions with adjacent infiltrates. There is coronary artery calcifications. There is diffuse soft tissue edema. Liver: Normal. Spleen: Normal. Pancreas: Normal. Adrenal Glands: Normal. Kidneys: Normal. There is no free air. There is mild fluid in the pelvis and around the liver and spleen. There is no lymphadenopathy. The urinary bladder is mostly collapsed and a Montiel. Mild wall thickening is likely due to hypertrophy. There is mild wall thickening of the left colon without surrounding inflammation. There is mild distention of the more proximal colon. The appendix is normal. Is mildly distended loops of small bowel with fluid and some feces sign. There is a large stone in the gallbladder. The gallbladder is otherwise partially collapsed and not well evaluated. Impression: 1. Mild wall thickening of the left colon with distention of the more proximal colon and small bowel. This could be infectious such as pseudomembranous colitis or could be inflammatory such as ulcerative colitis. There is no evidence of diverticulitis. There is no air in the wall to suggest ischemic colitis. 2. Mild ascites. 3. Diffuse soft tissue edema could be anasarca or sepsis. 4. Small pleural effusions adjacent infiltrates. This is likely secondary to CHF. 5. Cholelithiasis. End impression PQRS Compliance Statement: One or more of the following individualized dose reduction techniques were utilized for this examination: 1. Automated exposure control 2. Adjustment of the mA and/or kV according to patient size 3. Use of iterative reconstruction technique Electronically signed by: Marivel Chowdhury III, MD (09/03/2019 10:29 AM) [id number] DICTATED AND SIGNED BY: MARIVEL CHOWDHURY III, MD DATE: 09/03/19 1029 CC: DANIAL KEN DO; CARLOS MARAVILLA MD ~ Course & Med Decision Making: Course & Med Decision Making Pertinent Labs and Imaging studies reviewed. (See chart for details) [] Dragon Disclaimer: Dragon Disclaimer: This electronic medical record was generated, in whole or in part, using a voice recognition dictation system. 0950 patient just passed moderate amount of bloody stool, hemoglobin is currently stable. Remainder of blood work had to be redrawn. 1040 stable, Dr. Noble was contacted and accepted patient for admission. Patient will admitted to a [facility] bed here at [facility]. Patient is hemodynamically stable. Patient does not require a transfusion. Differential diagnosis for her colitis includes pseudomembranous colitis versus ulcerative colitis. Patient does not have obvious diverticulitis or ischemic colitis. Patient was given dose of IV Protonix. Departure Departure: Impression: Primary Impression: Acute hemorrhagic colitis Additional Impression: Left lower quadrant abdominal pain Disposition: ADMITTED INPATIENT Admitting Physician: Mak Noble Condition: STABLE Referrals: CARLOS MARAVILLA MD (PCP) Justification of Admission: Justification of Admission: Justification of Admission Dx: Yes Chronic Renal Failure: Renail Failure Comments: Active GI bleed with acute colitis DANIAL KEN DO Sep 03, 2019 09:17
[2019-09-03] MEDS ORDERED: ONDANSETRON PF 4 MG/2 ML VIAL. IVP ONE (09:30)
[2019-09-03] MEDS ORDERED: PANTOPRAZOLE IV 40 MG VIAL. IVP ONE (09:30)
[2019-09-03 09:37] LABS: BASO % 0 % (0-3); EOS # 0.1 x10^3/uL (0.0-0.7); EOS % 1 % (0-3); HEMATOCRIT 37.8 % (36.0-47.0); HEMOGLOBIN 12.6 g/dL (12.0-15.5); LYMPH # 0.3 x10^3/uL (1.0-4.8); LYMPH % 3 % (24-48); MEAN CORPUSCULAR HEMOGLOBIN 31 pg (25-35); MEAN CORPUSCULAR HGB CONC 33 g/dL (31-37); MEAN CORPUSCULAR VOLUME 93 fL (79-100); MONO # 0.4 x10^3/uL (0.0-1.1); MONO % 4 % (0-9); NEUT # 8.5 x10^3uL (1.8-7.7); NEUT % 92 % (31-73); PLATELET COUNT 252 x10^3/uL (140-400); RED BLOOD COUNT 4.04 x10^6/uL (3.50-5.40); RED CELL DISTRIBUTION WIDTH 16.4 % (11.5-14.5); WHITE BLOOD COUNT 9.2 x10^3/uL (4.0-11.0)
[2019-09-03 10:01] LABS: BILIRUBIN,URINE NEG (NEG); CLARITY,URINE HAZY; COLOR,URINE YELLOW; GLUCOSE,URINE NEG (NEG); NITRITE,URINE NEG (NEG); UROBILINOGEN,URINE 0.2 mg/dL (0.2 mg/dL)
[2019-09-03 10:02] LABS: BACTERIA,URINE MANY /HPF (0-FEW); HYALINE CASTS, URINE MANY /HPF
[2019-09-03 10:08] LABS: FECAL OB PT POSITIVE (NEG)
[2019-09-03 10:23] LABS: CALCIUM 8.5 mg/dL (8.5-10.1); CREATININE 1.6 mg/dL (0.6-1.0); GFR 31.2; POTASSIUM 3.5 mmol/L (3.5-5.1)
[2019-09-03 10:29] LABS: ALBUMIN 2.3 g/dL (3.4-5.0); ALBUMIN/GLOBULIN RATIO 0.6 (1.0-1.7); TOTAL BILIRUBIN 0.6 mg/dL (0.2-1.0)
--- NOTE | 2019-09-03 10:32 | RAD ---
Abdominal and Pelvis CT, Without Contrast: History: Reason: LLQ abd pain, hx renal failure / Spl. Instructions: / History: Comparison: None. Procedure: Axial images are obtained of the abdomen and pelvis, without IV or oral contrast. Oral Contrast: No Findings: Evaluation of solid organs is limited without contrast. There is moderate to large pleural effusions with adjacent infiltrates. There is coronary artery calcifications. There is diffuse soft tissue edema. Liver: Normal. Spleen: Normal. Pancreas: Normal. Adrenal Glands: Normal. Kidneys: Normal. There is no free air. There is mild fluid in the pelvis and around the liver and spleen. There is no lymphadenopathy. The urinary bladder is mostly collapsed and a Juarez. Mild wall thickening is likely due to hypertrophy. There is mild wall thickening of the left colon without surrounding inflammation. There is mild distention of the more proximal colon. The appendix is normal. Is mildly distended loops of small bowel with fluid and some feces sign. There is a large stone in the gallbladder. The gallbladder is otherwise partially collapsed and not well evaluated. Impression: 1. Mild wall thickening of the left colon with distention of the more proximal colon and small bowel. This could be infectious such as pseudomembranous colitis or could be inflammatory such as ulcerative colitis. There is no evidence of diverticulitis. There is no air in the wall to suggest ischemic colitis. 2. Mild ascites. 3. Diffuse soft tissue edema could be anasarca or sepsis. 4. Small pleural effusions adjacent infiltrates. This is likely secondary to CHF. 5. Cholelithiasis. End impression PQRS Compliance Statement: One or more of the following individualized dose reduction techniques were utilized for this examination: 1. Automated exposure control 2. Adjustment of the mA and/or kV according to patient size 3. Use of iterative reconstruction technique Electronically signed by: Jero Romero III, MD (09/03/2019 10:29 AM) [id number]
[2019-09-03] MEDS ORDERED: ONDANSETRON PF 4 MG/2 ML VIAL. IVP PRN (10:45)
[2019-09-03 11:58] VITALS: BP 90/60
[2019-09-03 12:39] LABS: % ATYL 1 % (0-0); % BANDS 22 % (0-9); % EOS 1 % (0-5); % LYMPHS 5 % (24-48); % MONOS 6 % (0-10); % SEGS 65 % (35-66); PLT ESTIMATE ADEQUATE (ADEQUATE); TOXIC GRANULATION PRESENT
[2019-09-03 12:40] LABS: TOXIC VACUOLATION PRESENT
[2019-09-03 12:42] LABS: BURR CELLS PRESENT
--- NOTE | 2019-09-03 13:20 | EKG ---
[address] [address] Test Date: 2019-09-03 Test Time: 10:15:40 Pat Name: SANDRA GUILLERMO Department: Room: Gender: F Bulk Receiver: : 1940 Requested By: DANIAL KEN Order Number: [id number] Reading MD: Measurements Intervals [place] Rate: 88 P: 37 AR: 164 QRS: -51 QRSD: 112 T: 76 QT: 396 QTc: 483 Interpretive Statements SINUS RHYTHM COMPLEX(ES) WITH ABERRANT INTRAVENTRICULAR CONDUCTION VENTRICULAR PREMATURE COMPLEX(ES) ABNORMAL LEFT AXIS DEVIATION LOW LIMB LEAD VOLTAGE LEFT ANTERIOR FASCICULAR BLOCK QRS(T) CONTOUR ABNORMALITY CONSIDER ANTEROSEPTAL MYOCARDIAL DAMAGE CONSIDER INFERIOR INFARCT ABNORMAL ECG RI6.02 No previous ECG available for comparison
[2019-09-03 15:23] LABS: HEMATOCRIT 38.4 % (36.0-47.0); HEMOGLOBIN 12.7 g/dL (12.0-15.5); RED BLOOD COUNT 4.07 x10^6/uL (3.50-5.40); RED CELL DISTRIBUTION WIDTH 16.5 % (11.5-14.5)
[2019-09-03 15:29] LABS: CALCIUM 8.5 mg/dL (8.5-10.1); CREATININE 1.7 mg/dL (0.6-1.0); GFR 29.1; POTASSIUM 3.4 mmol/L (3.5-5.1)
[2019-09-03 15:52] VITALS: BP 105/64
[2019-09-03] MEDS ORDERED: AMIN30LI PO (16:00)
[2019-09-03] MEDS ORDERED: VITS42.55 TP (16:00)
[2019-09-03] MEDS ORDERED: LEVO150T5 PO (16:00)
[2019-09-03] MEDS ORDERED: MAGN400T44 PO (16:00)
[2019-09-03] MEDS ORDERED: LORA2ORA8 PO (16:00)
[2019-09-03] MEDS ORDERED: OMEP20CA16 PO (16:00)
[2019-09-03] MEDS ORDERED: METF-658 PO (16:00)
[2019-09-03] MEDS ORDERED: ATOR40TA59 PO (16:00)
[2019-09-03] MEDS ORDERED: CARV3.1230 PO (16:00)
[2019-09-03] MEDS ORDERED: LISI2.5T PO (16:00)
[2019-09-03] MEDS ORDERED: CLOP75TA PO (16:00)
[2019-09-03] MEDS ORDERED: HYDR26CR2 TP (16:00)
[2019-09-03] MEDS ORDERED: ONDA4TAB7 PO (16:00)
[2019-09-03] MEDS ORDERED: ACET325T21 PO (16:00)
[2019-09-03] MEDS ORDERED: SERT50TA PO (16:00)
[2019-09-03] MEDS ORDERED: DOCU-109 PO (16:00)
[2019-09-03] MEDS ORDERED: TORS20TA2 PO (16:00)
[2019-09-03] MEDS ORDERED: ATRO2DRO3 SL (16:00)
[2019-09-03] MEDS ORDERED: MIRT15TA PO (16:00)
[2019-09-03] MEDS ORDERED: ASPI-630 PO (16:00)
--- NOTE | 2019-09-03 16:04 | HP ---
ADMIT DATE: 09/03/2019 HISTORY OF PRESENT ILLNESS: The patient is a 79-year-old female patient, a resident at [facility] who was brought to the Emergency Room for the complaint of left lower quadrant abdominal pain that started about 2 days. She also had acute on chronic vaginal bleeding as well. There is reported nausea, but no vomiting or diarrhea. She is on a blood thinner. She is currently actually on palliative care and she has an indwelling Juarez catheter and her code status is a DNR/DNI. She was evaluated in the Emergency Room and basically her lab work showed hemoglobin was 12.6, hematocrit 37.8. Her chemistry showed her BUN was 60, creatinine was 1.6 and she did have a CT scan of the abdomen and pelvis without contrast, which showed that there is moderate to large pleural effusions with adjacent infiltrate. There is coronary artery calcification. There is diffuse soft tissue edema. The liver, spleen and pancreas are normal. Adrenal glands are normal. Kidneys are normal. There is no free air. There is mild fluid in the pelvis and around the liver and spleen. There is no lymphadenopathy. The urinary bladder wall is thickened. There is mild wall thickening of the left colon without surrounding inflammation. There is mild distention of the more proximal colon. The appendix is normal and there are mildly distended loops of small bowel with fluid and some feces. There is a large stone in the gallbladder. The gallbladder is otherwise partially collapsed and not well evaluated and the impression is that the patient has mild wall thickening of the left colon with distention of the more proximal colon, the small bowel. This could be infectious such as pseudomembranous colitis or could be inflammatory such as ulcerative colitis. There is no evidence of diverticulitis. There is no air in the wall to suggest ischemic colitis. Has mild ascites, diffuse soft tissue edema, could be anasarca or sepsis, small pleural effusions with adjacent infiltrate. There is likely secondary to congestive heart failure. She has cholelithiasis. The patient was admitted for observation. We did send stool for C. diff. We will monitor her H and H and transfuse her as needed and if C. diff positive, we will start her on vancomycin empirically and if it is positive, I will continue with pain management and comfort care. When I saw her this afternoon, her main complaint was pain in her left lower quadrant. PAST MEDICAL HISTORY: Significant for congestive heart failure due to ischemic cardiomyopathy for which she has an AICD at [facility]. Her left ventricular ejection fraction only 10-15%. She is known to have coronary artery disease, status post PCI with stent deployment to left anterior, left circumflex and right coronary arteries in 10/2018. She is known to have hypertension, hyperlipidemia, type 2 diabetes. She also has severe hypocalcemia and severe protein-calorie malnutrition. PAST SURGICAL HISTORY: Significant for tonsillectomy, esophageal stricture, status post dilatation as well as placement of [employer] dual-chamber automated implantable cardioverter defibrillator for primary prevention of sudden cardiac in a patient with severe ischemic cardiomyopathy. FAMILY HISTORY: Noncontributory. 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 She does not smoke, drink alcohol or use any recreational drugs. ALLERGIES: She has no known drug allergies. MEDICATIONS: She is currently on following medications: She is on Plavix 75 mg once a day, acetaminophen 650 mg every 4 hours as needed, atorvastatin calcium 40 mg daily. She is on preparation H 1% cream applied topically as needed for hemorrhoids. She is on Zoloft 50 mg once a day, levothyroxine sodium 150 mcg once a day. She is on metformin 500 mg twice a day, carvedilol 3.125 mg twice a day, aspirin 81 mg once a day, Remeron 15 mg at bedtime. She is on magnesium oxide 400 mg 3 times a day. She is on omeprazole 20 mg once a day, morphine sulfate 20 mg per 1 mL solution to give 0.25 mL for pain or air hunger every hour as needed. She is also on atropine sulfate 1% solution applied 2-3 drops for excessive secretion sublingually every 2 hours, lorazepam 2 mg per 1 mL solution to give 0.5 mg at 0.25 mL for anxiety and she is also on Zofran 4 mg every 8 hours, furosemide 40 mg daily. REVIEW OF SYSTEMS: As per history of present illness. PHYSICAL EXAMINATION: GENERAL: When I examined her, she looked well and was clearly in no apparent respiratory distress, pale, but no jaundice, cyanosis or thyromegaly. No jugular venous distention. No limb edema. VITAL SIGNS: Her heart rate was 88, blood pressure 118/62, temperature was 98.7, respiratory rate was 18 and oxygen saturation was 94%. HEAD, EYES, EARS, NOSE AND THROAT: Normocephalic, atraumatic. NECK: Supple. HEART: Showed normal first and second heart sounds. No gallop, rub or murmur. CHEST: Clear to auscultation. No crepitation or rhonchi anteriorly. ABDOMEN: Distended, soft. Tenderness mostly in the left lower quadrant. There is no guarding or rigidity. No organomegaly. All hernial orifices intact. Bowel sounds normal. NEUROLOGIC: Somewhat hard of hearing, but otherwise all cranial nerves intact. EXTREMITIES: She moves extremities without difficulty, although she is mostly bedbound. The patient has generalized anasarca. She does have marked soft tissue edema of both breasts, more so on the left side with peau d'orange. I am not sure whether this is and also some induration of the left breast, which seems to be larger than the right that she has underlying breast cancer and is obviously difficult to know. LABORATORY DATA: Her lab work on arrival this morning showed white cell count 9200, hemoglobin 12.6, hematocrit 37.8, MCV 93, and platelet count 252,000. Her chemistry showed a serum sodium 134, potassium 3.5, chloride 96, bicarbonate 31, anion gap of 7, BUN 60, creatinine 1.6, estimated GFR was 31 mL per minute. Her glucose 141, calcium was 8.5. Total bilirubin, AST, ALT, alkaline phosphatase were normal. Total protein 6, albumin 2.3 and lipase was 42. Her urinalysis essentially unremarkable. Her stool for occult blood was positive. 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 Her CT scan of the abdomen and pelvis shows features consistent with either pseudomembranous colitis or ulcerative colitis. There is no evidence of diverticulitis. There is no air in the wall suggesting ischemic colitis. She has diffuse soft tissue swelling consistent with anasarca, mild ascites and small pleural effusion. My plan is to start her on a clear liquid diet. I would resume all her medication except her Plavix and aspirin and we will monitor her H and H and continue with her comfort care. SULTANA BLOCK MD DR: SAEED/odette JOB#: [id number] / [id number]
--- NOTE | 2019-09-03 16:35 | NUR ---
The patient, SANDRA GUILLERMO, 79 y/o, F admitted by SULTANA BLOCK MD, was given written information regarding hospital policies, unit procedures and contact persons. Valuables were checked and LEFT WITH PATIENT. PT IS RESTING AT THIS TIME AND COMPLAINS OF ABD PAIN WITH PALPITATION. VSS. WILL CTM.
[2019-09-03] MEDS ORDERED: LIDOCAINE 2% VISCOUS 15 ML SOLUTION. MM PRN (16:45)
[2019-09-03] MEDS ORDERED: ACETAMINOPHEN 325 MG TABLET PO PRN (16:45)
[2019-09-03] MEDS ORDERED: ONDANSETRON ODT 4 MG TAB.RAPDIS PO PRN (16:45)
[2019-09-03] MEDS ORDERED: DOCUSATE SODIUM 100 MG CAPSULE PO PRN (16:45)
[2019-09-03] MEDS ORDERED: LORazepam INTENSOL 2 MG/ML BOTTLE PO PRN (16:45)
[2019-09-03] MEDS ORDERED: ATROPINE 1% OPHTH SOLUTION 5ML BOTTLE. SL SCH (16:45)
[2019-09-03] MEDS ORDERED: HYDROCORTISONE 1% TOPICAL CREAM 30GM TUBE. TP PRN (16:45)
[2019-09-03] MEDS: VANCOMYCIN 125 MG/2.5 ML ORAL SOLUTION. PO SCH ×2 (17:50→21:00)
[2019-09-03] MEDS: CARVEDILOL 3.125 MG TABLET PO SCH (17:51)
--- NOTE | 2019-09-03 18:22 | NUR ---
when cleaning patient up, there was a moderate amount of blood in brief. Pt is tender to touch and is refusing to turn on her side. This nurse was able to talk patient in to turning so that she does not get a bed sore. Pt agree's and states she will try to lay on her side for an hour or so. Will CTM.
[2019-09-03 18:50] VITALS: BP 115/65
[2019-09-03] MEDS: ATORVASTATIN CALCIUM 20 MG TABLET PO SCH (21:00)
[2019-09-03] MEDS: LACTOBACILLUS RHAMNOSUS GG 1 CAPSULE. PO SCH (21:00)
[2019-09-03] MEDS: MIRTAZAPINE 15 MG TABLET PO SCH (21:00)
[2019-09-03] MEDS: SERTRALINE 50 MG TABLET. PO SCH (21:00)
[2019-09-03] MEDS: MAGNESIUM OXIDE 400 MG TABLET PO SCH (21:00)
[2019-09-03] MEDS: VITS A & D/LANOLIN TOPICAL OINTMENT 42GM TUBE. TP SCH (21:00)
[2019-09-04 01:35] VITALS: BP_SYST 78; BP_DIAS 49; BP_DIAS 50
[2019-09-04 05:53] VITALS: BP 90/62
--- NOTE | 2019-09-04 06:09 | NUR ---
Pt c/o pain left flank, subsides with medication. Pt needs encouragement to drink fluids. She prefers flavored water and cola. This morning she also c/o nausea; requested angélica charles. She produced a small amount of white, frothy sputum then requested to lay her head back to rest. Will continue to monitor.
[2019-09-04 07:21] LABS: HEMATOCRIT 39.6 % (36.0-47.0); RED BLOOD COUNT 4.21 x10^6/uL (3.50-5.40); RED CELL DISTRIBUTION WIDTH 16.3 % (11.5-14.5); WHITE BLOOD COUNT 7.7 x10^3/uL (4.0-11.0)
[2019-09-04] MEDS ORDERED: PANTOPRAZOLE 40 MG TABLET. PO SCH (07:30)
[2019-09-04] MEDS ORDERED: LEVOTHYROXINE 150 MCG TABLET PO SCH (07:30)
[2019-09-04 07:41] LABS: ALBUMIN 2.1 g/dL (3.4-5.0); ALBUMIN/GLOBULIN RATIO 0.6 (1.0-1.7); CALCIUM 8.2 mg/dL (8.5-10.1); CREATININE 1.9 mg/dL (0.6-1.0); GFR 25.6; TOTAL BILIRUBIN 0.8 mg/dL (0.2-1.0); TOTAL PROTEIN 5.8 g/dL (6.4-8.2)
[2019-09-04] MEDS: CARVEDILOL 3.125 MG TABLET PO SCH ×2 (08:00→16:55)
[2019-09-04] MEDS: POTASSIUM CHLORIDE 10MEQ 100 ML IV SCH ×4 (08:27→11:24)
[2019-09-04] MEDS: LACTOBACILLUS RHAMNOSUS GG 1 CAPSULE. PO SCH ×2 (08:39→20:13)
[2019-09-04] MEDS: POTASSIUM BICARB 20 MEQ EFFERVESCENT TABLET. FT SCH ×2 (08:39→12:00)
[2019-09-04] MEDS: MAGNESIUM OXIDE 400 MG TABLET PO SCH ×3 (08:39→20:13)
[2019-09-04] MEDS: VANCOMYCIN 125 MG/2.5 ML ORAL SOLUTION. PO SCH (08:40)
[2019-09-04] MEDS: VITS A & D/LANOLIN TOPICAL OINTMENT 42GM TUBE. TP SCH ×2 (08:49→20:27)
[2019-09-04] MEDS ORDERED: TORSEMIDE 20 MG TABLET. PO SCH (09:00)
[2019-09-04 10:55] VITALS: BP 97/62
[2019-09-04] MEDS ORDERED: NON FORMULARY ITEM (Amino Acids/Protein Hydrolys (Pro-Stat Liquid) 30 ML) PO SCH (11:30)
[2019-09-04] MEDS ORDERED: POTASSIUM CL 20MEQ IN 0.9%NACL 1,000 ML IV SCH (12:00)
[2019-09-04] MEDS ORDERED: PIPERACILLIN/TAZOBACTAM 2.25 GM in IV NORMAL SALINE 50ML 50 ML IV SCH (12:00)
[2019-09-04] MEDS ORDERED: POTASSIUM CL 20MEQ D5-0.45NACL 1,000 ML IV SCH (12:00)
[2019-09-04] MEDS: ONDANSETRON PF 4 MG/2 ML VIAL. IVP PRN ×2 (13:25→20:13)
[2019-09-04 15:40] VITALS: BP 72/52
[2019-09-04 19:48] VITALS: BP 84/50
[2019-09-04] MEDS: SERTRALINE 50 MG TABLET. PO SCH (20:13)
[2019-09-04] MEDS: MIRTAZAPINE 15 MG TABLET PO SCH (20:13)
[2019-09-04] MEDS: ATORVASTATIN CALCIUM 20 MG TABLET PO SCH (20:13)
--- NOTE | 2019-09-04 21:52 | PN ---
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 CT scan of the abdomen and pelvis did show features consistent either pseudomembranous colitis or ulcerative colitis. There is no evidence of diverticulitis. We did send stool for C. diff toxins were negative and her H and H has remained stable. In fact, her hemoglobin has risen from 12.6 to 13; however, her kidney function has worsened such that her creatinine has risen from 1.6 to 1.9. She is also hypokalemic and she has been getting potassium supplement. Her urine has grown more than 100,000 colony forming units per mL of gram-negative rods identified as Klebsiella pneumoniae, the sensitivity is still pending at the time of this dictation. When questioning her, the patient apparently has had multiple episodes of nausea and vomiting, and therefore, we switched her pain medication to be given IV in the form of fentanyl. She has received Zofran. She is on a clear liquid diet. PHYSICAL EXAMINATION: GENERAL: When I saw her this afternoon, she was pale, but no jaundice, cyanosis or thyromegaly. No jugular venous distention. No limb edema. VITAL SIGNS: Her heart rate was 80, blood pressure was 97/62, temperature was 97.6, respiratory rate was 18 and oxygen saturation was 93%. HEAD, EYES, EARS, NOSE AND THROAT: Showed normocephalic, atraumatic. NECK: Supple. CARDIAC: Normal first and second heart sounds. No gallop or murmur. CHEST: Shows central trachea, equal bilateral expansion, air entry, vesicular sounds. No crepitation or rhonchi. ABDOMEN: Distended, soft. Tenderness mostly in the left lower quadrant. No guarding or rigidity. No organomegaly. All hernial orifices intact. Bowel sounds normal. NEUROLOGIC: She is awake, alert, responding appropriately. All cranial nerves are intact. She moves her upper extremities to much good extent than her lower extremities. She is mostly bed bound. LABORATORY DATA: Her white cell count was 7700, hemoglobin 13, hematocrit 39, MCV 94 and platelet count 292,000. Her chemistry showed a serum sodium 134, potassium 3, chloride 96, bicarbonate 29, anion gap of 9, BUN 66, creatinine 1.9, estimated GFR was 25 mL per minute. Her glucose 145, calcium was 8.2. Total bilirubin, AST, ALT, alkaline phosphatase were normal. Total protein was 5.8, albumin 2.1. Her stool for C. diff toxins was negative. Her stool for occult blood was positive. ASSESSMENT: 1. Lower gastrointestinal bleed; however, her H and H is stable. 2. Hyponatremia. 3. Hypokalemia. 4. Acute on chronic kidney injury. 5. Urinary tract infection with growth of ____. 6. Diarrhea; however, C. diff toxin is negative. PLAN: My plan is to start her on IV fluid in the form of normal saline plus 20 mEq of potassium chloride for gentle rehydration and to replenish her potassium and sodium. I did add also Zosyn 2.25 g IV q.12 hourly for treatment of urinary tract infection and possible acute colitis or infectious colitis. We will repeat her lab works again tomorrow and decide on further management accordingly. SULTANA BLOCK MD DR: SAEED/odette JOB#: [id number] / [id number]
[2019-09-04] MEDS ORDERED: IV NORMAL SALINE 500ML 500 ML IV ONE (23:00)
--- NOTE | 2019-09-04 23:03 | NUR ---
2300 vitals check pt bp was 57/36. Dr was notified and ordered 500 bolus of NS. Pt has been vomiting black emesis periodically through the night was given Zofran.
--- NOTE | 2019-09-05 01:16 | NUR ---
At 2325 nurse entered pts room to reassess vitals during bolus administration. pt was unresponsive and had agonal breathing. family and Dr notified of pt decline immediately. pt passed at 233September 04, 2019. 2 nurse verification of completed. At 2350 family arrived and at bedside. 0045 family left home notified. Body released to [facility] at 0112.
--- NOTE | 2019-09-13 14:30 | DS ---
DATE OF DISCHARGE: 09/05/2019 DISCHARGE/ SUMMARY HOSPITAL COURSE: The patient was a 79-year-old female patient, a resident at [facility] who was brought initially to the Emergency Room with a complaint of left lower quadrant abdominal pain that started about 2 days ago. She also had acute on chronic GI bleed. She did report nausea, but no vomiting. She is also on blood thinner. She is actually on palliative care and has an indwelling Juarez catheter and her code status is DNR/DNI. She was evaluated in the Emergency Room and basically, her lab work showed her hemoglobin was 12.6, hematocrit 37. Chemistry showed a BUN of 60, creatinine 1.6. CT scan of the abdomen and pelvis without contrast showed that there is moderate to large amount of pleural effusion, adjacent infiltrate. There is coronary artery calcification, diffuse soft tissue edema; the liver, spleen, pancreas are normal, adrenal glands and kidneys are normal. There is no free air. There is mild fluid in the pelvis and around the liver and spleen. There is mild thickening of the left colon without surrounding inflammation. There is mild distention of the more proximal colon. The patient was basically admitted and started on IV fluid. I did also start her on oral vancomycin given that the thickening of the colon was consistent with pseudomembranous colitis or ulcerative colitis, but no diverticulitis and although her H and H somewhat remained stable, her kidney function deteriorated and she developed severe shortness of breath, felt to be secondary to aspiration pneumonia. She was continued on her comfort care medication in the form of morphine and Ativan and around 2325 p.m. on 09/05/2019, the patient was found to be unresponsive and had agonal breathing. Further evaluation showed that she has no spontaneous breathing, no audible heart sounds, no palpable pulsation and the patient was pronounced around 12:45 a.m. FINAL DISCHARGE DIAGNOSES: Cardiopulmonary arrest, acute hypoxic respiratory failure, aspiration pneumonia, acute on chronic kidney injury. SULTANA BLOCK MD DR: SAEED/odette JOB#: [id number] / [id number]
== END 2019-09-04 23:50 | disposition expired | DRG 177 ==
LOC: ER 09:02 → 1 SOUTH 10:40 → UNDODISIN 09-05 01:28
PROVIDERS: ADMIT Internal Medicine; ATTEND Internal Medicine
DX: J69.0 Pneumonitis due to inhalation of food and vomit (principal); N17.0 Acute kidney failure with tubular necrosis; E43 Unspecified severe protein-calorie malnutrition; J96.01 Acute respiratory failure with hypoxia; R18.8 Other ascites; K51.90 Ulcerative colitis, unspecified, without complications; E87.1 Hypo-osmolality and hyponatremia; I13.0 Hypertensive heart and chronic kidney disease with heart failure and stage 1 through stage 4 chronic kidney disease, or unspecified chronic kidney disease; N39.0 Urinary tract infection, site not specified; A04.72 Enterocolitis due to Clostridium difficile, not specified as recurrent; K92.2 Gastrointestinal hemorrhage, unspecified; F41.9 Anxiety disorder, unspecified; I50.9 Heart failure, unspecified; E78.00 Pure hypercholesterolemia, unspecified; E03.9 Hypothyroidism, unspecified; E78.5 Hyperlipidemia, unspecified; Z51.5 Encounter for palliative care; Z66 Do not resuscitate; N93.9 Abnormal uterine and vaginal bleeding, unspecified; I46.9 Cardiac arrest, cause unspecified; I25.10 Atherosclerotic heart disease of native coronary artery without angina pectoris; K80.20 Calculus of gallbladder without cholecystitis without obstruction; I25.5 Ischemic cardiomyopathy; E87.6 Hypokalemia; B96.1 Klebsiella pneumoniae [K. pneumoniae] as the cause of diseases classified elsewhere; N18.9 Chronic kidney disease, unspecified; E11.22 Type 2 diabetes mellitus with diabetic chronic kidney disease; Z74.01 Bed confinement status; Z95.810 Presence of automatic (implantable) cardiac defibrillator; Z95.5 Presence of coronary angioplasty implant and graft; Z68.25 Body mass index [BMI] 25.0-25.9, adult
CPT/HCPCS: 36415; 74176; 80048; 80053; 81001; 82274; 82947; 83690; 85007; 85025; 85027; 87077; 87086; 87186; 87493; 93005; 96361; 96374; 96375; C9113; J2405; J2543; J3010; J3480; J7040; Q0162; 99285-25; J7030